=== PATIENT | male | born 1940 ===

== ENCOUNTER 2022-03-21 03:20 | Inpatient (IN) | payer MEDICARE, BC ==
[2022-03-21] MEDS ORDERED: Acetaminophen 325 MG Tab PO PRN (07:16)
[2022-03-21] MEDS ORDERED: Ondansetron 4 MG/2 ML SDV IV PRN (07:22)
[2022-03-21] MEDS ORDERED: Piperacillin/Tazobactam 4.5 GM in Sodium Chloride 0.9% 100 ML IV ONE (07:30)
[2022-03-21] MEDS ORDERED: LORazepam 2 MG/ML SDV IVPUSH PRN (08:10)
[2022-03-21] MEDS ORDERED: Flumazenil 0.1 MG/ML 5 ML MDV IVPUSH PRN (08:10)
[2022-03-21] MEDS ORDERED: QUEtiapine 25 MG Tab PO PRN (08:11)
[2022-03-21] MEDS ORDERED: Promethazine 25 MG Tab PO PRN (08:12)
[2022-03-21 08:50] LABS: CHLORIDE,CL 106 mmol/L (98-107); SODIUM,NA 145 mmol/L (136-145)
[2022-03-21 08:51] LABS: ANION GAP 6.4 mmol/L (5-15); ESTIMATED GFR 74 mL/min (>=60)
[2022-03-21] MEDS: Potassium Chloride 10 MEQ Tab.ER PO SCH (08:55)
[2022-03-21] MEDS: dexAMETHasone 2 MG, dexAMETHasone 4 MG PO SCH ×2 (08:55)
[2022-03-21] MEDS: Tamsulosin 0.4 MG Cap.ER PO SCH (08:56)
[2022-03-21] MEDS: Aspirin 81 MG Tab.EC PO SCH (08:56)
[2022-03-21] MEDS: Multivitamins with Iron/Calcium/Folic Acid/Minerals Tab PO SCH (08:56)
[2022-03-21] MEDS: Azithromycin 250 MG Tab PO SCH (08:56)
[2022-03-21] MEDS: Memantine 10 MG Tab PO SCH (08:56)
[2022-03-21] MEDS: PRED MOXI KETOR EYEBOTH SCH ×2 (12:16→13:38)
[2022-03-21] MEDS: Piperacillin/Tazobactam 3.375 GM in Sodium Chloride 0.9% 100 ML IV SCH (15:24)
[2022-03-22] MEDS: Memantine 10 MG Tab PO SCH ×4 (00:57→21:19)
[2022-03-22] MEDS: Enoxaparin 40 MG/0.4 ML Syringe SUBCUT SCH ×3 (00:57→21:15)
[2022-03-22] MEDS: Piperacillin/Tazobactam 3.375 GM in Sodium Chloride 0.9% 100 ML IV SCH ×4 (00:58→23:56)
[2022-03-22 07:51] LABS: ANION GAP 7.7 mmol/L (5-15)
[2022-03-22] MEDS ORDERED: QUEtiapine 25 MG Tab PO PRN (08:52)
[2022-03-22] MEDS: Azithromycin 250 MG Tab PO SCH (09:04)
[2022-03-22] MEDS: Aspirin 81 MG Tab.EC PO SCH (09:04)
[2022-03-22] MEDS: Multivitamins with Iron/Calcium/Folic Acid/Minerals Tab PO SCH (09:05)
[2022-03-22] MEDS: Tamsulosin 0.4 MG Cap.ER PO SCH (09:05)
[2022-03-22] MEDS: Potassium Chloride 10 MEQ Tab.ER PO SCH (09:05)
[2022-03-22] MEDS: dexAMETHasone 2 MG, dexAMETHasone 4 MG PO SCH ×2 (09:05)
[2022-03-22] MEDS: QUEtiapine 25 MG Tab PO SCH ×2 (10:53→20:51)
[2022-03-23] MEDS: Piperacillin/Tazobactam 3.375 GM in Sodium Chloride 0.9% 100 ML IV SCH ×2 (09:56→16:55)
[2022-03-23] MEDS: dexAMETHasone 2 MG, dexAMETHasone 4 MG PO SCH ×4 (09:59→10:09)
[2022-03-23] MEDS: Aspirin 81 MG Tab.EC PO SCH ×2 (10:00→10:10)
[2022-03-23] MEDS: QUEtiapine 25 MG Tab PO SCH ×4 (10:00→21:20)
[2022-03-23] MEDS: Azithromycin 250 MG Tab PO SCH ×2 (10:00→10:10)
[2022-03-23] MEDS: Memantine 10 MG Tab PO SCH ×4 (10:00→21:20)
[2022-03-23] MEDS: Potassium Chloride 10 MEQ Tab.ER PO SCH ×2 (10:01→10:10)
[2022-03-23] MEDS: Tamsulosin 0.4 MG Cap.ER PO SCH ×2 (10:01→10:10)
[2022-03-23] MEDS: Multivitamins with Iron/Calcium/Folic Acid/Minerals Tab PO SCH ×2 (10:01→10:10)
[2022-03-23] MEDS ORDERED: Haloperidol Lactate 5 MG/ML SDV IV SCH (17:00)
[2022-03-23] MEDS: Haloperidol Lactate 5 MG/ML SDV IM SCH (18:30)
[2022-03-23] MEDS: Enoxaparin 40 MG/0.4 ML Syringe SUBCUT SCH (21:11)
[2022-03-24] MEDS: Piperacillin/Tazobactam 3.375 GM in Sodium Chloride 0.9% 100 ML IV SCH ×3 (00:03→17:33)
[2022-03-24] MEDS: Haloperidol Lactate 5 MG/ML SDV IM SCH ×3 (00:06→19:46)
[2022-03-24] MEDS: Aspirin 81 MG Tab.EC PO SCH (19:42)
[2022-03-24] MEDS: dexAMETHasone 2 MG, dexAMETHasone 4 MG PO SCH ×2 (19:42)
[2022-03-24] MEDS: Tamsulosin 0.4 MG Cap.ER PO SCH (19:42)
[2022-03-24] MEDS: Potassium Chloride 10 MEQ Tab.ER PO SCH (19:43)
[2022-03-24] MEDS: Memantine 10 MG Tab PO SCH ×2 (19:43→21:22)
[2022-03-24] MEDS: QUEtiapine 25 MG Tab PO SCH ×2 (19:43→21:22)
[2022-03-24] MEDS: Enoxaparin 40 MG/0.4 ML Syringe SUBCUT SCH (21:21)
[2022-03-25] MEDS: Piperacillin/Tazobactam 3.375 GM in Sodium Chloride 0.9% 100 ML IV SCH ×3 (00:03→16:17)
[2022-03-25] MEDS: Haloperidol Lactate 5 MG/ML SDV IM SCH ×2 (00:03→09:03)
[2022-03-25] MEDS ORDERED: Multivitamin Tab PO SCH (09:00)
[2022-03-25] MEDS: dexAMETHasone 2 MG, dexAMETHasone 4 MG PO SCH ×2 (10:25)
[2022-03-25] MEDS: QUEtiapine 25 MG Tab PO SCH ×2 (10:28→21:01)
[2022-03-25] MEDS: Potassium Chloride 10 MEQ Tab.ER PO SCH (10:28)
[2022-03-25] MEDS: Aspirin 81 MG Tab.EC PO SCH (10:28)
[2022-03-25] MEDS: Memantine 10 MG Tab PO SCH ×2 (10:28→21:01)
[2022-03-25] MEDS: Tamsulosin 0.4 MG Cap.ER PO SCH (10:28)
[2022-03-25] MEDS ORDERED: Haloperidol Lactate 5 MG/ML SDV IM PRN (14:05)
[2022-03-25] MEDS: Enoxaparin 40 MG/0.4 ML Syringe SUBCUT SCH (21:00)
[2022-03-26] MEDS: Piperacillin/Tazobactam 3.375 GM in Sodium Chloride 0.9% 100 ML IV SCH ×4 (00:03→23:57)
[2022-03-26 07:52] LABS: ANION GAP 9.1 mmol/L (5-15)
[2022-03-26] MEDS ORDERED: OLANZapine 10 MG Vial IM PRN (10:24)
[2022-03-26] MEDS: Tamsulosin 0.4 MG Cap.ER PO SCH (11:06)
[2022-03-26] MEDS: Memantine 10 MG Tab PO SCH ×3 (11:07→21:59)
[2022-03-26] MEDS: Potassium Chloride 10 MEQ Tab.ER PO SCH (11:07)
[2022-03-26] MEDS: Aspirin 81 MG Tab.EC PO SCH (11:07)
[2022-03-26] MEDS: QUEtiapine 25 MG Tab PO SCH ×3 (11:07→21:59)
[2022-03-26] MEDS: Enoxaparin 40 MG/0.4 ML Syringe SUBCUT SCH (20:25)
[2022-03-27] MEDS ORDERED: Albuterol/Ipratropium 3.0-0.5 MG/3 ML Neb Soln NEB PRN (08:56)
[2022-03-27] MEDS: Memantine 10 MG Tab PO SCH ×2 (09:33→20:38)
[2022-03-27] MEDS: QUEtiapine 25 MG Tab PO SCH ×2 (09:33→20:39)
[2022-03-27] MEDS: Piperacillin/Tazobactam 3.375 GM in Sodium Chloride 0.9% 100 ML IV SCH ×2 (09:33→16:00)
[2022-03-27] MEDS: Potassium Chloride 10 MEQ Tab.ER PO SCH (09:34)
[2022-03-27] MEDS: Tamsulosin 0.4 MG Cap.ER PO SCH (09:34)
[2022-03-27] MEDS: Aspirin 81 MG Tab.EC PO SCH (09:34)
[2022-03-27] MEDS: Enoxaparin 40 MG/0.4 ML Syringe SUBCUT SCH (20:38)
[2022-03-28] MEDS: Piperacillin/Tazobactam 3.375 GM in Sodium Chloride 0.9% 100 ML IV SCH ×2 (00:17→08:25)
[2022-03-28] MEDS: Potassium Chloride 10 MEQ Tab.ER PO SCH (08:47)
[2022-03-28] MEDS: Tamsulosin 0.4 MG Cap.ER PO SCH (08:47)
[2022-03-28] MEDS: Memantine 10 MG Tab PO SCH (08:47)
[2022-03-28] MEDS: Aspirin 81 MG Tab.EC PO SCH (08:47)
[2022-03-28] MEDS: QUEtiapine 25 MG Tab PO SCH (08:47)
[2022-03-28] MEDS ORDERED: OLANZapine 10 MG Vial IM PRN (08:55)
[2022-03-28] MEDS ORDERED: OLANZapine 5 MG Tab.DIS PO PRN (09:56)
== END 2022-03-28 11:30 | disposition swing bed (61) | DRG 177 ==
LOC: VM.MS 03:20
PROVIDERS: ADMIT Internal Medicine; ATTEND Internal Medicine
PROC: 3E0DX3Z Introduction of Anti-inflammatory into Mouth and Pharynx, External Approach (ICD-10-PCS; principal; 2022-03-21)
DX: U07.1 COVID-19 (principal); J12.82 Pneumonia due to coronavirus disease 2019; F03.911 Unspecified dementia, unspecified severity, with agitation; E46 Unspecified protein-calorie malnutrition; J30.9 Allergic rhinitis, unspecified; E78.00 Pure hypercholesterolemia, unspecified; I10 Essential (primary) hypertension; J45.909 Unspecified asthma, uncomplicated; N42.9 Disorder of prostate, unspecified; M19.90 Unspecified osteoarthritis, unspecified site; E87.6 Hypokalemia; R79.1 Abnormal coagulation profile; E80.6 Other disorders of bilirubin metabolism; L98.429 Non-pressure chronic ulcer of back with unspecified severity; Z91.81 History of falling; I25.2 Old myocardial infarction; Z98.49 Cataract extraction status, unspecified eye; I25.10 Atherosclerotic heart disease of native coronary artery without angina pectoris
CPT/HCPCS: 36415; 70450; 80048; 80053; 80076; 82550; 82728; 83605; 83735; 85025; 85379; 85610; 86140; 92610-GN; 94640; 97165-GO; 97535-GO; A9270-GY; J1630; J1650; J2060; J2543; J3490; J7620-GY; J8540

== ENCOUNTER 2022-03-28 09:27 | Inpatient (IN) | payer BC, MEDICARE ==
[2022-03-28] MEDS ORDERED: OLANZapine 5 MG Tab.DIS PO PRN (10:08)
[2022-03-28] MEDS ORDERED: QUEtiapine 25 MG Tab PO PRN (10:08)
[2022-03-28] MEDS ORDERED: Albuterol/Ipratropium 3.0-0.5 MG/3 ML Neb Soln NEB PRN (10:08)
[2022-03-28] MEDS ORDERED: Acetaminophen 325 MG Tab PO PRN (10:08)
[2022-03-28] MEDS ORDERED: Promethazine 25 MG Tab PO PRN (10:08)
[2022-03-28] MEDS: QUEtiapine 25 MG Tab PO SCH (21:17)
[2022-03-29] MEDS: QUEtiapine 25 MG Tab PO SCH ×2 (08:58→20:48)
[2022-03-29] MEDS: Aspirin 81 MG Tab.EC PO SCH (08:58)
[2022-03-29] MEDS ORDERED: Tamsulosin 0.4 MG Cap.ER PO SCH (09:00)
[2022-03-29] MEDS ORDERED: Potassium Chloride 10 MEQ Tab.ER PO SCH (09:00)
[2022-03-30] MEDS: Aspirin 81 MG Tab.EC PO SCH (08:00)
[2022-03-30] MEDS: QUEtiapine 25 MG Tab PO SCH (08:00)
== END 2022-03-30 09:00 | disposition critical access hospital (66) | DRG 177 ==
LOC: VM.MS 11:31 → UNDOADMIN 11:31
PROVIDERS: ADMIT Internal Medicine; ATTEND Internal Medicine
DX: U07.1 COVID-19 (principal); J18.9 Pneumonia, unspecified organism; E46 Unspecified protein-calorie malnutrition; F03.918 Unspecified dementia, unspecified severity, with other behavioral disturbance; E87.6 Hypokalemia; I25.2 Old myocardial infarction; I25.10 Atherosclerotic heart disease of native coronary artery without angina pectoris; Z91.81 History of falling; R29.6 Repeated falls; R53.1 Weakness
CPT/HCPCS: 97161-GP; A9270-GY